=== PATIENT | female | born 1965 | race Caucasian/White ===

== ENCOUNTER → 2017-04-15 | Outpatient (CLI) | payer BC ==
[~2017-04-15] MED LIST: FISH OIL PO; MULTTAB4 PO; OMEP20CA3 PO; PROBCAP13 PO; SLO MAG PO; TRAZ100T2 PO; VITACAP31 PO; ZOCO10TA PO
--- NOTE | 2017-04-15 11:43 | REPMRS ---
Patient History The patient states she had a clinical breast exam in Patient is postmenopausal. No known family history of cancer. Digital Woman Screen Mammo: April 15, 2017 - Exam #: [id number] Bilateral CC and MLO view(s) were taken. Technologist: Maria C Frazier, Technologist Prior study comparison: April 14, 2016, digital woman screen mammo performed at [facility]. April 08, 2015, digital woman screen mammo performed at [facility]. FINDINGS: There are scattered fibroglandular densities. There has been no change in the appearance of the mammogram from the prior studies. There is a mild amount of residual fibroglandular tissue which is fairly symmetric. There is no interval development of dominant mass, architectural distortion, or clustered microcalcification suggestive of malignancy. ASSESSMENT: BI-RADS/ACR category 1 mammogram. Negative. Recommendation Routine screening mammogram in 1 year (for women over age 40). This mammogram was interpreted with the aid of an FDA-approved computer-aided dectection system. Electronically Signed By: Derek Carranza MD 04/15/17 2767
== END ==
LOC: M WHC 08:54
PROVIDERS: ATTEND Nurse Practitioner Family
DX: Z12.31 Encounter for screening mammogram for malignant neoplasm of breast (principal)

== ENCOUNTER → 2018-06-28 | Outpatient (REF) | payer BC ==
[2018-06-28 13:44] LABS: FERRITIN 9 NG/ML (8-252); IRON (FE) 63 UG/DL (50-170); PERCENT SATURATION 12.5 % (13.2-45.0); TOTAL IRON BINDING CAPACITY 503 UG/DL (250-450)
[2018-06-28 13:48] LABS: VITAMIN B12 LEVEL > 2000 PG/ML
[2018-06-28 13:49] LABS: FOLATE 10.3 NG/ML
== END ==
LOC: M LAB REF 12:39
DX: D64.9 Anemia, unspecified (principal)

== ENCOUNTER → 2018-07-11 | Outpatient (CLI) | payer BC | LOC: M WHC 09:31 | DX: Z12.31 Encounter for screening mammogram for malignant neoplasm of breast (principal) | CPT/HCPCS: 77067 ==

== ENCOUNTER → 2019-09-18 | Outpatient (CLI) | payer BC ==
--- NOTE | 2019-09-18 13:31 | REPMRS ---
Patient History The patient states she had a clinical breast exam in 2019. No known family history of cancer. Patient had gastic by-pass a few years ago 3D TOMOSYNTHESIS WAS PERFORMED. The [facility] Swanson lifetime risk for breast cancer is 7.2%. Digital Woman Screen Mammo: September 18, 2019 - Exam #: [id number] Bilateral CC and MLO view(s) were taken. Technologist: Teresa Saleh, Technologist Prior study comparison: July 11, 2018, bilateral digital woman screen mammo performed at [facility] [place]. April 15, 2017, digital woman screen mammo performed at [facility] [place]. FINDINGS: The breast tissue is heterogeneously dense. This may lower the sensitivity of mammography. There has been no change in the appearance of the mammogram from the prior studies. There is a moderate amount of residual fibroglandular tissue which is fairly symmetric. There is no interval development of dominant mass, areas of architectural distortion, or clustered microcalcification typical of malignancy. Assessment: BI-RADS/ACR category 1 mammogram. Negative Mammogram. Recommendation Routine screening mammogram in 1 year (for women over age 40). This mammogram was interpreted with the aid of an FDA-approved computer-aided dectection system. Electronically Signed By: Derek Carranza MD 09/18/19 1849
== END ==
LOC: M WHC 10:45
PROVIDERS: ATTEND Nurse Practitioner Family
DX: Z12.31 Encounter for screening mammogram for malignant neoplasm of breast (principal)

== ENCOUNTER → 2019-11-05 | Outpatient (REF) | payer BC ==
[2019-11-05 17:10] LABS: BASO # 0.1 10^3/uL (0.0-0.2); EOS # 0.1 10^3/uL (0.0-0.5); HEMATOCRIT 43.8 % (36.0-47.0); HEMOGLOBIN 13.7 g/dl (12.0-15.5); LYMPH # 2.1 10^3/uL (1.5-5.0); LYMPH % 40.8 % (24.0-44.0); MEAN CORPUSCULAR HEMOGLOBIN 27.4 pg (27.0-33.0); MEAN CORPUSCULAR HGB CONC 31.3 g/dl (32.0-36.5); MEAN CORPUSCULAR VOLUME 87.6 fl (80.0-96.0); MONO # 0.3 10^3/uL (0.0-0.8); NEUTROPHILS # 2.7 10^3/uL (1.5-8.5); PLATELET COUNT, AUTOMATED 339 10^3/uL (150-450); WHITE BLOOD COUNT 5.2 10^3/uL (4.0-10.0)
[2019-11-05 17:21] LABS: C REACTIVE PROTEIN QUANTITATIV < 0.30 MG/DL (0.00-0.30); FERRITIN 8 NG/ML (8-252); FREE T3 2.6 PG/ML (2.2-4.0); IRON (FE) 120 UG/DL (50-170); PERCENT SATURATION 23.7 % (13.2-45.0); RHEUMATOID FACTOR QUANT < 10.0 IU/ML (<15.0); TOTAL IRON BINDING CAPACITY 506 UG/DL (250-450); TOTAL PROTEIN 7.4 GM/DL (6.4-8.2)
[2019-11-05 17:23] LABS: FOLATE 11.4 NG/ML; VITAMIN B12 LEVEL 1836 PG/ML
[2019-11-06 10:55] LABS: ALBUMIN 4.72 GM/DL (3.29-5.55); ALBUMIN % 63.8 % (55.8-66.1); ALPHA-1-GLOBULIN % 3.6 % (2.9-4.9); ALPHA-1-GLOBULINS 0.27 GM/DL (0.17-0.41); ALPHA-2-GLOBULINS % 10.8 % (7.1-11.8); BETA-1-GLOBULINS 0.53 GM/DL (0.28-0.60); BETA-1-GLOBULINS % 7.2 % (4.7-7.2); BETA-2-GLOBULINS 0.29 GM/DL (0.19-0.55); BETA-2-GLOBULINS % 3.9 % (3.2-6.5); GAMMA GLOBULIN % 10.7 % (11.1-18.8); GAMMA GLOBULINS 0.79 GM/DL (0.65-1.58)
[2019-11-07 14:07] LABS: ANTINUCLEAR ANTIBODIES DIRECT Negative (Negative)
== END ==
LOC: M LAB REF 16:47
PROVIDERS: ATTEND Family Medicine
DX: D64.9 Anemia, unspecified (principal); M25.541 Pain in joints of right hand; Z98.84 Bariatric surgery status

== ENCOUNTER 2020-04-04 07:34 | Emergency (ER) | payer BC, OTHER ==
[2020-04-04] MEDS ORDERED: ACETAMINOPHEN TAB 650MG DOSE (2X325MG) ONE (08:07)
[2020-04-04] MEDS ORDERED: BOOSTRIX/ADACEL VACCINE (DIPHTH/PERTUSS/ACELL/TETANUS) 0.5ML SYR ONE (08:07)
== END 2020-04-04 09:50 | disposition home or self-care (01) ==
LOC: M ED 07:34
DX: S50.312A Abrasion of left elbow, initial encounter (principal); S40.022A Contusion of left upper arm, initial encounter; V03.90XA Pedestrian on foot injured in collision with car, pick-up truck or van, unspecified whether traffic or nontraffic accident, initial encounter; Y92.410 Unspecified street and highway as the place of occurrence of the external cause; Z88.5 Allergy status to narcotic agent

== ENCOUNTER → 2020-05-05 | Outpatient (REF) | payer BC | LOC: M LAB REF 16:24 | PROVIDERS: ATTEND Family Medicine | DX: D64.9 Anemia, unspecified (principal); Z98.84 Bariatric surgery status ==

== ENCOUNTER → 2020-07-10 | Outpatient (REF) | payer BC | LOC: M LAB REF 12:15 | PROVIDERS: ATTEND Family Medicine | DX: E61.1 Iron deficiency (principal) ==

== ENCOUNTER → 2020-09-19 | Outpatient (CLI) | payer BC ==
--- NOTE | 2020-09-19 09:23 | REPMRS ---
Patient History The patient states she had a clinical breast exam in 2020. No known family history of cancer. Digital Woman Screen Mammo: September 19, 2020 - Exam #: [id number] Bilateral CC and MLO view(s) were taken. Technologist: Teresa Saleh, Technologist Prior study comparison: September 18, 2019, bilateral digital woman screen mammo performed at [facility]. July 11, 2018, bilateral digital woman screen mammo performed at [facility]. April 15, 2017, digital woman screen mammo performed at [facility]. FINDINGS: The breast tissue is heterogeneously dense. This may lower the sensitivity of mammography. The Volpara volumetric breast density category is: C. There is a moderate amount of heterogeneously dense fibroglandular tissue which is fairly symmetric. There is no interval development of dominant mass, architectural distortion, or grouped microcalcification typical of malignancy. There has been no change in the appearance of the mammogram from the prior studies. 3-D tomosynthesis shows no additional findings. Assessment: BI-RADS/ACR category 1 mammogram. Negative Mammogram. Recommendation Routine screening mammogram of both breasts in 1 year (for women over age 40). This patient's [facility] Lifetime Breast Cancer RIsk is estimated at 7.0 %. This mammogram was interpreted with the aid of an FDA-approved computer-aided dectection system. Electronically Signed By: Sunil Lovell MD 09/19/20 0922
== END ==
LOC: M WHC 08:19
PROVIDERS: ATTEND Nurse Practitioner Family
DX: Z12.31 Encounter for screening mammogram for malignant neoplasm of breast (principal)

== ENCOUNTER → 2020-11-04 | Outpatient (REF) | payer BC | LOC: M LAB REF 11:28 | PROVIDERS: ATTEND Family Medicine | DX: E61.1 Iron deficiency (principal) ==

== ENCOUNTER → 2021-05-13 | Outpatient (REF) | payer BC | LOC: M LAB REF 11:02 | PROVIDERS: ATTEND Family Medicine | DX: Z98.84 Bariatric surgery status (principal) ==

== ENCOUNTER → 2021-06-09 | Outpatient (CLI) | payer BC ==
--- NOTE | 2021-06-09 15:54 | REP ---
INDICATION: EPIGASTRIC PAIN COMPARISON: None. TECHNIQUE: Real time gerard scale ultrasound examination using curved array transducer. FINDINGS: Liver is relatively normal in appearance with diffuse small echogenic foci suggesting calcifications. Pancreas is incompletely evaluated due to interposed bowel gas. The gallbladder includes benign appearing 5 mm polyp without gallstones, wall thickening, or pericholecystic fluid. No biliary ductal dilatation is appreciated and the common bile duct measures 4.0 mm diameter. Right kidney is normal in reniform shape without hydronephrosis and measures 10.9 x 5.3 x 3.5 cm. No ascites in the visualized right upper quadrant. IMPRESSION: 1. Essentially normal examination. Hepatic parenchymal echo suggest calcification. 2. Benign appearing gallbladder polyp. <Electronically signed by Nikhil Fall > 06/09/21 [id number]
== END ==
LOC: M RAD 08:50
PROVIDERS: ATTEND Family Medicine
DX: R10.13 Epigastric pain (principal)

== ENCOUNTER → 2021-09-23 | Outpatient (CLI) | payer BC ==
[2021-09-23 14:08] LABS: AMYLASE 109 U/L (25-115); LIPASE 183 U/L (73-393)
== END ==
LOC: M LAB 12:43
PROVIDERS: ATTEND Internal Medicine Gastroenterology
DX: R19.5 Other fecal abnormalities (principal)

== ENCOUNTER → 2021-10-05 | Outpatient (CLI) | payer BC | LOC: M RAD 07:37 | PROVIDERS: ATTEND Student in an Organized Health Care Education/Training Program | DX: R10.9 Unspecified abdominal pain (principal) ==

== ENCOUNTER → 2021-10-22 | Outpatient (REF) | payer BC | LOC: M PLALAB 08:47 | PROVIDERS: ATTEND Specialist | DX: Z12.4 Encounter for screening for malignant neoplasm of cervix (principal); Z53.9 Procedure and treatment not carried out, unspecified reason ==

== ENCOUNTER → 2021-10-22 | Outpatient (CLI) | payer BC | LOC: M WHC 08:36 | PROVIDERS: ATTEND Specialist | DX: Z12.31 Encounter for screening mammogram for malignant neoplasm of breast (principal) ==

== ENCOUNTER → 2021-11-09 | Outpatient (REF) | payer BC | LOC: M LAB REF 12:22 | PROVIDERS: ATTEND Family Medicine | DX: Z98.84 Bariatric surgery status (principal) ==

== ENCOUNTER → 2022-01-04 | Outpatient (CLI) | payer BC ==
[~2022-01-04] MED LIST changes: +GASTROGRAFIN SOLUTION 30ML (Q9963) ONE
== END ==
LOC: M PLAIMG 12:31
PROVIDERS: ATTEND Surgery
DX: R19.09 Other intra-abdominal and pelvic swelling, mass and lump (principal)
CPT/HCPCS: 72192; Q9963

== ENCOUNTER → 2022-03-15 | Outpatient (CLI) | payer BC ==
[~2022-03-15] MED LIST changes: -GASTROGRAFIN SOLUTION 30ML (Q9963) ONE
== END ==
LOC: M LABSMTC 09:22
PROVIDERS: ATTEND Surgery
DX: Z11.52 Encounter for screening for COVID-19 (principal)

== ENCOUNTER → 2022-05-17 | Outpatient (REF) | payer BC | LOC: M LAB REF 11:51 | PROVIDERS: ATTEND Family Medicine | DX: E61.1 Iron deficiency (principal) ==

== ENCOUNTER → 2022-06-10 | Outpatient (CLI) | payer BC | LOC: M RAD 07:54 | PROVIDERS: ATTEND Internal Medicine Gastroenterology | DX: K82.4 Cholesterolosis of gallbladder (principal) ==

== ENCOUNTER → 2022-11-16 | Outpatient (CLI) | payer BC | LOC: M RAD 08:33 | PROVIDERS: ATTEND Family Medicine | DX: M25.551 Pain in right hip (principal) ==

== ENCOUNTER → 2023-01-25 | Outpatient (CLI) | payer BC | LOC: M RAD 07:31 | PROVIDERS: ATTEND Internal Medicine Gastroenterology | DX: K82.4 Cholesterolosis of gallbladder (principal) ==

== ENCOUNTER → 2023-03-18 | Outpatient (CLI) | payer BC | LOC: M WHC 16:00 | PROVIDERS: ATTEND Nurse Practitioner Women's Health | DX: Z12.31 Encounter for screening mammogram for malignant neoplasm of breast (principal) ==

== ENCOUNTER → 2023-08-11 | Outpatient (REF) | payer BC | LOC: M LAB REF 12:36 | PROVIDERS: ATTEND Family Medicine | DX: E61.1 Iron deficiency (principal) ==

== ENCOUNTER → 2023-10-04 | Outpatient (CLI) | payer BC | LOC: M CARPUL 08:49 | PROVIDERS: ATTEND Family Medicine | DX: R01.1 Cardiac murmur, unspecified (principal) ==

== ENCOUNTER → 2024-02-15 | Outpatient (REF) | payer BC | LOC: M LAB REF 11:28 | PROVIDERS: ATTEND Family Medicine | DX: E61.1 Iron deficiency (principal) ==

== ENCOUNTER 2024-02-25 16:10 | Emergency (ER) | payer BC ==
[~2024-02-25] VITALS: Ht 160 cm; Wt 63.2 kg
[2024-02-25 16:44] LABS: BASO % 0.5 % (0.0-1.0); EOS # 0.1 10^3/uL (0.0-0.5); EOS % 1.3 % (0.0-3.0); LYMPH # 1.7 10^3/uL (1.5-5.0); LYMPH % 26.6 % (24.0-44.0); MEAN CORPUSCULAR HEMOGLOBIN 27.2 pg (27.0-33.0); MEAN CORPUSCULAR HGB CONC 31.7 g/dl (32.0-36.5); MEAN CORPUSCULAR VOLUME 85.8 fl (80.0-96.0); MONO # 0.3 10^3/uL (0.0-0.8); MONO % 5.4 % (2.0-8.0); NEUTROPHILS # 4.2 10^3/uL (1.5-8.5); PLATELET COUNT, AUTOMATED 276 10^3/uL (150-450); RED BLOOD COUNT 4.78 10^6/uL (4.00-5.40); WHITE BLOOD COUNT 6.4 10^3/uL (4.0-10.0)
[2024-02-25 16:51] VITALS: TEMP 97.8
[2024-02-25 17:20] LABS: BLOOD UREA NITROGEN 15 MG/DL (9-23); CALCIUM LEVEL 9.1 MG/DL (8.3-10.6); CARBON DIOXIDE LEVEL 26 MMOL/L (20-31); CHLORIDE LEVEL 104 MMOL/L (98-107); CK-MB VALUE MASS 2.1 NG/ML (<3.6); CPK CREATINE PHOSPHOKINASE 172 U/L (34-145); CREATININE FOR GFR 0.96 MG/DL (0.55-1.30); GLOMERULAR FILTRATION RATE > 60.0 (>45); GLUCOSE, FASTING 137 MG/DL (74-106); MB/CK RELATIVE INDEX 1.22 (< OR =4); POTASSIUM SERUM 3.9 MMOL/L (3.5-5.1); SODIUM LEVEL 138 MMOL/L (136-145)
[2024-02-25 17:31] LABS: INR 1.06; PARTIAL THROMBOPLASTIN TIME 24.8 SECONDS (24.8-34.2); PROTHROMBIN TIME 13.5 SECONDS (12.5-14.5)
[2024-02-25] MEDS ORDERED: ISOVUE-370 76% 100ML VIAL As Ordered ONE (17:48)
[2024-02-25 18:10] LABS: CK-MB VALUE MASS 2.1 NG/ML (<3.6)
[2024-02-25 18:12] LABS: MB/CK RELATIVE INDEX 1.25 (< OR =4)
[2024-02-25] MEDS: MAALOX 30 ML SUSP *UDC PO ONE (18:29)
[2024-02-25] MEDS: LIDOCAINE VISCOUS 2% SOLN 15ML UDC PO ONE (18:29)
[2024-02-25] MEDS ORDERED: SUCR1TA PO (19:27)
[2024-02-25] MEDS ORDERED: OMEP40CA4 PO (19:27)
[2024-02-25 19:30] VITALS: BP 131/67; O2SAT 97
[2024-02-25] MEDS: SUCRALFATE SUSP 1GM/10ML UD PO ONE (19:36)
== END 2024-02-25 19:37 | disposition home or self-care (01) ==
LOC: M ED 16:10 → EDBD 16:10 → M ED 19:37
DX: K29.70 Gastritis, unspecified, without bleeding (principal); K21.9 Gastro-esophageal reflux disease without esophagitis; K25.9 Gastric ulcer, unspecified as acute or chronic, without hemorrhage or perforation; I35.0 Nonrheumatic aortic (valve) stenosis; F32.9 Major depressive disorder, single episode, unspecified; Z98.84 Bariatric surgery status; Z90.710 Acquired absence of both cervix and uterus; Z88.5 Allergy status to narcotic agent; Z82.49 Family history of ischemic heart disease and other diseases of the circulatory system; Z79.899 Other long term (current) drug therapy
CPT/HCPCS: 71045; 71275; 74177; 80048; 82550; 82553; 84484; 85025; 85610; 85730; 93005; 93041; 94760; 99285; Q9967

== ENCOUNTER → 2024-03-26 | Outpatient (CLI) | payer BC ==
[~2024-03-26] MED LIST changes: +OMEP40CA4 PO; +SUCR1TA PO
== END ==
LOC: M WHC 13:09
PROVIDERS: ATTEND Nurse Practitioner Women's Health
DX: Z12.31 Encounter for screening mammogram for malignant neoplasm of breast (principal)

== ENCOUNTER → 2024-03-26 | Outpatient (CLI) | payer BC | LOC: M WHC 15:00 | PROVIDERS: ATTEND Nurse Practitioner Women's Health | DX: Z13.820 Encounter for screening for osteoporosis (principal); Z78.0 Asymptomatic menopausal state; M85.851 Other specified disorders of bone density and structure, right thigh; M85.852 Other specified disorders of bone density and structure, left thigh; M85.88 Other specified disorders of bone density and structure, other site ==

== ENCOUNTER → 2024-05-11 | Outpatient (CLI) | payer BC ==
[~2024-05-11] MED LIST changes: +E-Z-GAS II EFFERVESCENT PACKET (SODIUM BICARB./CITRIC ACID/SIMETHICONE) As Ordered ONE; +E-Z-HD 98% w/w 340GM SUSP BTL As Ordered ONE; +E-Z-PAQUE 96% w/w SUSP 176GM BTL As Ordered ONE
== END ==
LOC: M RAD 08:35
PROVIDERS: ATTEND Family Medicine
DX: K21.9 Gastro-esophageal reflux disease without esophagitis (principal)

== ENCOUNTER → 2024-08-24 | Outpatient (REF) | payer BC ==
[~2024-08-24] MED LIST changes: -E-Z-GAS II EFFERVESCENT PACKET (SODIUM BICARB./CITRIC ACID/SIMETHICONE) As Ordered ONE; -E-Z-HD 98% w/w 340GM SUSP BTL As Ordered ONE; -E-Z-PAQUE 96% w/w SUSP 176GM BTL As Ordered ONE
== END ==
LOC: M LAB REF 11:43
PROVIDERS: ATTEND Family Medicine
DX: E61.1 Iron deficiency (principal)

== ENCOUNTER → 2025-02-21 | Outpatient (REF) | payer BC | LOC: M LAB REF 13:49 | PROVIDERS: ATTEND Family Medicine | DX: E61.1 Iron deficiency (principal) ==

== ENCOUNTER → 2025-03-29 | Outpatient (CLI) | payer BC | LOC: M WHC 09:13 | PROVIDERS: ATTEND Family Medicine | DX: Z12.31 Encounter for screening mammogram for malignant neoplasm of breast (principal) ==